=== PATIENT | female | born 1980 | race Caucasian/White ===

== ENCOUNTER 2018-08-04 12:20 | Emergency (ER) | payer BC ==
[~2018-08-04] VITALS: Ht 162.6 cm; Wt 97.1 kg
[2018-08-04 12:33] VITALS: BP 126/81
== END 2018-08-04 13:07 | disposition home or self-care (01) ==
LOC: ER 12:25
DX: H60.92 Unspecified otitis externa, left ear (principal); J40 Bronchitis, not specified as acute or chronic; B97.89 Other viral agents as the cause of diseases classified elsewhere; R06.2 Wheezing; L53.9 Erythematous condition, unspecified; Z98.890 Other specified postprocedural states

== ENCOUNTER 2021-06-14 06:05 | Emergency (ER) | payer BC ==
[~2021-06-14] VITALS: Ht 162.6 cm; Wt 98.9 kg
--- NOTE | 2021-06-14 06:44 | NUR ---
BIBS C/O VAGINAL BLEEDING AT 0530PM 29 WEEKS . DENIES ANY PAIN. PATIENT ALERT AND ORIENTED X3. AMBULATORY WITH NON LABORED BREATHING PLACED IN BED 16.
--- NOTE | 2021-06-14 06:58 | NUR ---
HAMLET LEWIS AT PT'S BEDSIDE
--- NOTE | 2021-06-14 07:10 | NUR ---
US DONE BY DR HAMLET LEWIS WITH FEMALE RN CONTRACT ADMINISTRATIVE ASSISTANT.
--- NOTE | 2021-06-14 07:20 | NUR ---
Patient does not wish to proceed with medical care recommended by Dr. MCNULTY" Leaving AMA at risk for missed/delayed diagnosis that may lead to injury, disability, or to your baby. Patient given information related to possible complications, up to and including , which could occur as a result of leaving the hospital at this time. Patient verbalizes understanding of risks involved due to leaving against medical advice. Patient has signed AMA form.
[2021-06-14 07:25] VITALS: BP 138/83
== END 2021-06-14 07:25 | disposition home or self-care (01) ==
LOC: ER 06:20
DX: O46.93 Antepartum hemorrhage, unspecified, third trimester (principal); Z98.890 Other specified postprocedural states; Z3A.29 29 weeks gestation of pregnancy